=== PATIENT | male | born 1955 | race Caucasian/White ===

== ENCOUNTER → 2021-10-27 13:13 | Outpatient (CLI) | payer MEDICARE, OTHER, SELFPAY | PROVIDERS: Visit Provider Urology | DX: R30.0 Dysuria (principal); R97.20 Elevated prostate specific antigen [PSA]; N40.2 Nodular prostate without lower urinary tract symptoms; R39.9 Unspecified symptoms and signs involving the genitourinary system; Z72.0 Tobacco use | CPT/HCPCS: 81002; 87086; 99214 ==

== ENCOUNTER → 2021-11-03 12:22 | Outpatient (CLI) | payer MEDICARE, OTHER, SELFPAY ==
--- NOTE | 2021-11-03 12:24 | DI.MRI.S_ITS ---
PROCEDURE: MR PELIS WO/W CON INDICATIONS: Rule out prostate cancer a PI-RADS lesion TECHNIQUE: Coronal HASTE, axial T1 FSE with fat saturation, 3-plane nonbreath-hold T2 FSE. After the administration of contrast, dynamic axial, delayed axial and coronal VIBE or 2-D FLASH with fat saturation through the pelvis. Optional diffusion weighted imaging and ADC may be performed. COMPARISON: None. FINDINGS: Image quality: Diffusion weighted and dynamic contrast enhanced images are diagnostic. Prostate: Gland size is 4.8 x 3.9 x 4.2 cm; ellipsoid gland volume is 40.9 mL. Morphology is relatively normal. Lesion size(s): Lesion 1: 1.5 x 1.4 x 1.0 cm Lesion location(s) (sector): Lesion 1: Right posterior medial peripheral zone at the gland apex. Lesion description: Lesion 1: Oval with an indistinct margin. There is a slight bulge of the capsular contour with slight mass effect on the anterior rectal wall. T2 weighted imaging (T2WI) morphology score: Lesion 1: Five Diffusion weighted imaging (DWI) morphology score: Lesion 1: Five Dynamic contrast enhancement (DCE): Lesion 1: Present Lesion PI-RADS score: Lesion 1: PI-RADS five Genitourinary system: Bladder wall thickness is normal. Distal ureters are non distended. Bowel and peritoneum: No pathologic free pelvic fluid. Inferior colon and small bowel loops are normal in caliber. Moderate sigmoid diverticulosis. Nodes and vessels: No pelvic or inguinal adenopathy by size criteria. Iliac vessels are normal in caliber. Soft tissues: No inguinal hernias. Bones: Marrow demonstrates normal overall signal, without lesions to suggest metastases. IMPRESSION: 1. 1.5 cm PI-RADS five lesion in the posteromedial right peripheral zone at the gland apex. 2. There is capsular bulge suggesting early extraprostatic extension. 3. No adenopathy seen. Dictated by: Pamela Sullivan M.D. on 11/03/2021 at 14:32 Approved by: Pamela Sullivan M.D. on 11/03/2021 at 14:47
== END ==
PROVIDERS: Referring Provider Urology; Visit Provider Urology
DX: N40.2 Nodular prostate without lower urinary tract symptoms (principal); R97.21 Rising PSA following treatment for malignant neoplasm of prostate
CPT/HCPCS: 72197; A9579

== ENCOUNTER → 2022-02-08 09:11 | Outpatient (CLI) | payer MEDICARE, OTHER, SELFPAY ==
--- NOTE | 2022-02-08 09:13 | DI.NM.S_ITS ---
PROCEDURE: NM BONE SCAN WHOLE BODY RADIOPHARMACEUTICAL: 22.0 mCi Tc-99m MDP IV. INDICATIONS: New diagnosis prostate cancer TECHNIQUE: Delayed whole-body scintigrams were obtained approximately 3-4 hours after intravenous injection of radiotracer. Anterior and posterior views were acquired from vertex to feet. Additional left and right oblique views of the pelvis were obtained. COMPARISON: [facility], CT, CT ABDOMEN PELVIS W CON, 02/08/2022, 11:12. FINDINGS: There is mild focal uptake in the left frontal bone. There are multiple foci of increased uptake in cervical, thoracic and spine, most likely degenerative in nature. Early metastasis could be obscured. Increased uptake is noted in the medial head of the right clavicle. Increased uptake is also seen in the sternum. Increased uptake in the maxilla and mandible is most likely secondary to dental disease. There are foci of increased periarticular activity involving compatible with degenerative/arthritic changes. IMPRESSION: 1. There are foci of increased uptake left frontal bone, sternum, and the medial head of the right clavicle. Recommend radiographic correlation. 2. Foci of increased uptake in spine are most likely degenerative. Recommend radiographic correlation if clinically indicated. 3. Degenerative/arthritic changes in multiple peripheral joints. Dictated by: Thomas Teresa M.D. on 02/08/2022 at 16:55 Approved by: Thomas Teresa M.D. on 02/08/2022 at 17:03
--- NOTE | 2022-02-08 09:13 | DI.CT.S_ITS ---
PROCEDURE: CT ABDOMEN PELVIS W CON INDICATIONS: New diagnosis prostate cancer TECHNIQUE: After the administration of oral and intravenous contrast, axial sections were acquired from the lung bases to the pubic symphysis. Coronal and sagittal reformats were performed. For radiation dose reduction, the following was used: automated exposure control, adjustment of mA and/or kV according to patient size. COMPARISON:None. FINDINGS: Image quality: Excellent. Lung bases: Unremarkable. Heart: No significant findings. ABDOMEN: Liver: Suspected steatosis Gallbladder: Unremarkable Biliary ducts: Unremarkable. Pancreas: Unremarkable. Spleen: Unremarkable. Adrenal Glands: 2.1 x 1.6 centimeter left adrenal nodule. Kidneys and Ureters: Subcentimeter lesions are too small to characterize. Left posterior cyst. Perinephric stranding could be senescent. Stomach and Bowel: Colonic diverticula. Peritoneum: No abnormal intraperitoneal fluid. No free air. Ventral Wall: Small fat containing umbilical hernia. Abdominal Nodes: Prominent lymph nodes, without enlargement by size criteria. Vessels: Atherosclerotic calcifications of the aorta and its branches. PELVIS: Pelvic Organs: Prostate adenocarcinoma is not well evaluated on CT. There are prostate calcifications. Bladder: Distended. Pelvic Nodes: No pathologically enlarged lymph nodes identified. Miscellaneous: Small right fat containing inguinal hernia. Bones: Bone scan findings are separately dictated. No suspicious focal lesion. Spondylosis. IMPRESSION: No abdominopelvic lymphadenopathy. Primary prostate cancer is not well evaluated on CT. Please also see separately dictated bone scan report. Spondylosis. Left adrenal nodule might be an adenoma, this could be followed on subsequent imaging or if confirmation is needed adrenal protocol CT can be ordered. Other incidental findings as noted above. Dictated by: Erik Soto M.D. on 02/08/2022 at 12:39 Approved by: Erik Soto M.D. on 02/08/2022 at 12:50
[2022-02-08 09:40] LABS: BUN Creatinine Ratio 22.4 (6-22); Blood Urea Nitrogen 17 mg/dL (9-20); Calcium 9.3 mg/dL (8.4-10.2); Carbon Dioxide 30 mmol/L (22-32); Chloride 103 mmol/L (98-107); Estimated Glomerular Filt Rate > 60 mL/min (>60); Glucose 116 mg/dL (80-110); HEMOLYSIS < 15 (0-50); Sodium 138 mmol/L (137-145)
== END ==
PROVIDERS: Referring Provider Urology; Visit Provider Urology
DX: C61 Malignant neoplasm of prostate (principal); E27.9 Disorder of adrenal gland, unspecified; R97.20 Elevated prostate specific antigen [PSA]; K57.90 Diverticulosis of intestine, part unspecified, without perforation or abscess without bleeding; K42.9 Umbilical hernia without obstruction or gangrene; K40.90 Unilateral inguinal hernia, without obstruction or gangrene, not specified as recurrent
CPT/HCPCS: 36415; 74177; 78306; 80048; A9503; Q9967

== ENCOUNTER → 2022-04-27 11:25 | Outpatient (CLI) | payer MEDICARE, OTHER, SELFPAY ==
[2022-04-27 14:32] LABS: Prostate Specific Antigen 0.587 ng/mL (0.10-4.00)
== END ==
PROVIDERS: Referring Provider Urology; Visit Provider Urology
DX: C61 Malignant neoplasm of prostate (principal); N40.2 Nodular prostate without lower urinary tract symptoms; R97.20 Elevated prostate specific antigen [PSA]; R39.9 Unspecified symptoms and signs involving the genitourinary system; Z79.818 Long term (current) use of other agents affecting estrogen receptors and estrogen levels
CPT/HCPCS: 36415; 77080; 84153

== ENCOUNTER → 2022-06-22 14:59 | Outpatient (CLI) | payer MEDICARE, OTHER, SELFPAY ==
[2022-06-22 17:49] LABS: Prostate Specific Antigen 0.496 ng/mL (0.10-4.00)
== END ==
PROVIDERS: Referring Provider Urology; Visit Provider Urology
DX: C61 Malignant neoplasm of prostate (principal)
CPT/HCPCS: 36415; 84153

== ENCOUNTER → 2022-12-08 11:19 | Outpatient (CLI) | payer MEDICARE, OTHER, SELFPAY ==
[2022-12-08 14:03] LABS: Prostate Specific Antigen < 0.064 ng/mL (0.10-4.00)
== END ==
PROVIDERS: Specialist; PCP Student in an Organized Health Care Education/Training Program; Referring Provider Radiology Radiation Oncology; Visit Provider Radiology Radiation Oncology
DX: C61 Malignant neoplasm of prostate (principal); R97.20 Elevated prostate specific antigen [PSA]
CPT/HCPCS: 36415; 84153

== ENCOUNTER → 2023-01-24 10:13 | Outpatient (CLI) | payer MEDICARE, OTHER, SELFPAY ==
[2023-01-24 11:52] LABS: Prostate Specific Antigen < 0.064 ng/mL (0.10-4.00)
== END ==
PROVIDERS: PCP Student in an Organized Health Care Education/Training Program; Referring Provider Urology; Visit Provider Urology
DX: C61 Malignant neoplasm of prostate (principal); Z92.3 Personal history of irradiation
CPT/HCPCS: 36415; 84153

== ENCOUNTER → 2023-04-19 10:22 | Outpatient (CLI) | payer MEDICARE, OTHER, SELFPAY ==
[2023-04-19 11:51] LABS: Prostate Specific Antigen 0.079 ng/mL (0.10-4.00)
== END ==
PROVIDERS: PCP Student in an Organized Health Care Education/Training Program; Referring Provider Urology; Visit Provider Urology
DX: C61 Malignant neoplasm of prostate (principal)
CPT/HCPCS: 36415; 84153

== ENCOUNTER → 2023-07-21 11:47 | Outpatient (CLI) | payer MEDICARE, OTHER, SELFPAY ==
[2023-07-21 14:57] LABS: Prostate Specific Antigen 0.108 ng/mL (0.10-4.00)
== END ==
PROVIDERS: PCP Student in an Organized Health Care Education/Training Program; Referring Provider Urology; Visit Provider Urology
DX: C61 Malignant neoplasm of prostate (principal)
CPT/HCPCS: 36415; 84153

== ENCOUNTER → 2023-10-20 11:09 | Outpatient (CLI) | payer MEDICARE, OTHER, SELFPAY ==
[2023-10-20 13:11] LABS: Prostate Specific Antigen 0.107 ng/mL (0.10-4.00)
== END ==
PROVIDERS: PCP Student in an Organized Health Care Education/Training Program; Referring Provider Urology; Visit Provider Urology
DX: C61 Malignant neoplasm of prostate (principal); R97.20 Elevated prostate specific antigen [PSA]
CPT/HCPCS: 36415; 84153

== ENCOUNTER → 2024-02-22 11:23 | Outpatient (CLI) | payer MEDICARE, OTHER, SELFPAY ==
[2024-02-22 17:26] LABS: Prostate Specific Antigen 0.125 ng/mL (0.10-4.00)
== END ==
PROVIDERS: PCP Student in an Organized Health Care Education/Training Program; Referring Provider Urology; Visit Provider Urology
DX: C61 Malignant neoplasm of prostate (principal)
CPT/HCPCS: 36415; 84153

== ENCOUNTER → 2024-07-13 09:09 | Outpatient (CLI) | payer MEDICARE, OTHER, SELFPAY ==
[2024-07-13 10:57] LABS: Prostate Specific Antigen 0.117 ng/mL (0.10-4.00)
== END ==
PROVIDERS: PCP Student in an Organized Health Care Education/Training Program; Referring Provider Urology; Visit Provider Urology
DX: C61 Malignant neoplasm of prostate (principal); R39.14 Feeling of incomplete bladder emptying
CPT/HCPCS: 36415; 84153

== ENCOUNTER → 2024-11-12 12:24 | Outpatient (CLI) | payer MEDICARE, OTHER, SELFPAY ==
[2024-11-12 13:59] LABS: Prostate Specific Antigen 0.132 ng/mL (0.10-4.00)
== END ==
PROVIDERS: PCP Student in an Organized Health Care Education/Training Program; Referring Provider Urology; Visit Provider Urology
DX: C61 Malignant neoplasm of prostate (principal); R97.20 Elevated prostate specific antigen [PSA]
CPT/HCPCS: 36415; 84153